=== PATIENT | male | born 1950 | race Caucasian/White ===

== ENCOUNTER 2016-02-11 09:41 | Inpatient (IN) | payer MEDICARE, MEDICAID ==
[~2016-02-11] VITALS: Ht 160 cm; Wt 56.7 kg
--- NOTE | ~2016-02-11 | PNE ---
"ADMIT DATE: 02/11/16 ROOM#: [id number] | MR#: [id number] | | [facility] | [place] [address] [address] | [facility] [id number] | | PHYSICAL THERAPY SEX: M AGE: 66 : 50 | PROGRESS NOTE EXTENSION Rehab Plan of Care Update Dr. Lemus, This letter is regarding your patient Clifton Muñoz at [facility], with a previous goal date of 05/05/16. The patient has progressed, but would benefit from further safety with gait, transfers, and ADL training to allow for increased safety. We plan to extend this patient until 05/19/16 for 1-2x/day treatment sessions. PT 5x/week OT 5x/week Please let me know if you have any questions or concerns with these goals or patient's plan of care. Thank you, Ivett Waggoner, PT Say King, OTR/L Therapist Signature: Date: Therapist Signature: Date: Physician Signature: Date: "
--- NOTE | ~2016-02-11 | PNE ---
"ADMIT DATE: 02/11/16 ROOM#: [id number] | MR#: [id number] | | [facility] | [place] [address] [address] | [facility] [id number] | | PHYSICAL THERAPY SEX: M AGE: 66 : 50 | PROGRESS NOTE EXTENSION Rehab Plan of Care Update Dr. Lemus, This letter is regarding your patient Clifton Muñoz at [facility], with an original goal date of 03/24/15. The patient has progressed, but would benefit from further safety with gait, transfers, and ADL training to allow for increased safety. We plan to extend this patient until 05/05/15 for treatment sessions. PT 1-2x/days 5-6x/week OT 5x/week ST 2-3x/week Please let me know if you have any questions or concerns with these goals or patient's plan of care. Thank you, Nicol Sandoval, PT, DPT Say King, OTR/L Sandi Reilly MS, CCC-SOLAR ENERGY ENGINEER Therapist Signature: Date: Therapist Signature: Date: Therapist Signature: Date: Physician Signature: Date: "
--- NOTE | 2016-02-15 20:53 | NUR ---
PT C/O PAIN LEFT GREAT TOE AND INNER ASPECT OF 2ND DIGIT L FOOT. PER EXAM SL RED WHERE THICK GREAT TOENAIL IS TOUCHING THE 2ND TOE, SKIN INTACT. STATES IT WAS MORE PAINFUL AFTER PT TODAY PER SURVEY METHODOLOGIST. DENIES STUBBING THE TOE OR OTHER INJURY WILL CONT TO MONITOR. APPLIED MEPILEX VORDER ON INNER ASPECT OF THE TOES TO PREVENT PRESSURE.
--- NOTE | 2016-02-17 09:52 | NUR ---
INTERVIEW FOR MDS 3.0-PT. IS ALERT, ORIENTED AND COGNITON IS INTACT. PER REHAB NOTES AND SNU DAILY ASSESSMENT, PT. IS APPROPRIATE WITH ANSWERS AND VERY MOTIVATED. PRIOR TO HOSPITALIZATION PT. WAS INDEPENDENT WITH ALL HIS ADLS AND MOBILITY NEEDS. HE LIVES IN A BASEMENT APPARTMENT WHICH REQUIRED 3 FLIGHTS OF STAIRS. PT. IS NOT DEPRESSED AND THRU INTERPETER AT DIFFERENT REHAB INTERVIEW, HE HAS A LITTLE TROUBLE SLEEPING AT TIMES BUT HIS APPETITE IS GOOD. LIKES SHOWERING, DOES NOT SEEM TO CARE ABOUT HAVING STAFF CHOOSE HIS CLOTHES FOR THE DAY. HAS SUPPLEMENT SNACKS OF [employer] OR ENSURE IN THE AM AND AFTERNOON AND A MAGIC CUP AT . HE'S VERY MOTIVATED TO BE ABLE TO GET HOME WITH HIS FAMILY AND WOULD ALSO LIKE TO RETURN TO [place] WHERE HE HAS A PLACE TO LIVE THAT HAS NO STAIRS. DENIES ANY PAIN. ALL INFORMATION TAKEN FROM ADMISSION ASSESSMENT, SNU DAILY ASSESSMENT, REHAB NOTES AND VISUAL EVALUATION AT DIFFERENT TIMES OF THE DAY SINCE ADMISSION.
--- NOTE | 2016-02-22 19:58 | NUR ---
pt seems happy -says relax / sleep,no noise
--- NOTE | 2016-03-14 18:43 | NUR ---
1740 WENT INTO PT ROOM TO GET PT INTO W/C. ATTEMPTED TO PUT GAIT BELT ON PT AND PT REFUSED TO PUT IT ON. REMINDED PT THAT THE GAIT BELT NEEDS TO BE USED WITH ALL TRANSFERS AND THAT IT IF FOR HIS SAFETY. PT GETS ANGRY CALLS NURSE Eugenia MUNIZ. VOICES THAT HE WILL JUST NOT EAT. TOLD HIM THAT IS HIS CHOICE BUT HE NEEDS TO ALWAYS USE A GAIT BELT TO TRANSFER. HE VOICES IT ONLY NEEDS TO USE FOR THERAPY. AGAIN INFORMED HIM THAT IT NEEDS TO BE USED FOR TRANSFERS ALSO. GETS ANGRIER AND PULLS AT HIS CLOTHING WHILE TALKING IN [place] AND AGAIN CALLS NURSE Eugenia MUNIZ IN [place]. FINALLY ALLOWS GAIT BELT TO BE APPLIED. PUSHED HIM TO DINING ROOM. HE LIFTS UP THE TRAY TABLE AND HIS WEAK ARM FALLS TO THE SIDE. REMINDED HIM TO LIFT ARM UP AND REST ON LAP. VOICES "I CAN'T" ENCOURAGED HIM TO TRY. HE DOES SO AND AGAIN CALLS NURSE Eugenia SALINASCH
--- NOTE | 2016-05-17 14:39 | NUR ---
PATIENT NOTE CLIFTON HAS BEEN D/C TO HOME FOLLOWING AN 81 DAY STAY HERE AT [facility] SKILLED CARE FOR CONTINUED THERAPY FOLLOWING HIS STROKE THAT OCCURED 01/06. CLIFTON RETURNED TO HIS SISTERS HOME HERE IN [place], HIS NEPHEW TEMPLE WILL BE THE PRIMARY CAREGIVER. A WALKER WAS ORDERED AND DELIVERED TO THIS UNIT, FAMILY WENT AND PURCHASED A OLGA WALKER, SHOWER CHAIR AND STOOL RISER. [facility] WILL PROVIDE RN/PT/OT/ST/BA SERVICES. HHC OPTIONS GIVEN TO FAMILY AND [facility] WAS CHOSEN. REFERRAL WAS MADE TO [facility] ON [address] AND MARIN WILL BE HIS BODY PRESS OPERATOR, SHE HAS BEEN NOTIFIED OF HIS D/C. ALL MEDS CALLED INTO [address] I WISHED HIM WELL AT HOME AND FAMILY WILL CALL WITH QUESTIONS OR CONCERNS.
[2016-05-18] MEDS ORDERED: ASA325 MG PO (10:11)
[2016-05-18] MEDS ORDERED: ZESTRIL DPS2.5 MG PO (10:11)
[2016-05-18] MEDS ORDERED: LIPITOR DPS20 MG PO (10:11)
[2016-05-18] MEDS ORDERED: SURFAK DPS240 MG PO (10:12)
[2016-05-18] MEDS ORDERED: VITAMIN B-12500 MCG PO (10:12)
[2016-05-18] MEDS ORDERED: VITAMIN D1000 UNIT PO (10:12)
[2016-05-18] MEDS ORDERED: MULTIVITAMINS1 EAC1 PO (10:12)
[2016-05-18] MEDS ORDERED: PLAVIX75 MG PO (10:12)
[2016-05-18] MEDS ORDERED: PEPCID DPS20 MG PO (10:13)
== END 2016-05-17 11:45 | disposition home health service (06) | DRG 57 ==
LOC: SNU 09:41
PROVIDERS: ADMIT Family Medicine
PROC: F07M3ZZ Motor Function Treatment of Musculoskeletal System - Whole Body (ICD-10-PCS; principal; 2016-02-18)
PROC: F08Z4ZZ Home Management Treatment (ICD-10-PCS; principal; 2016-02-18)
PROC: F06ZDZZ Swallowing Dysfunction Treatment (ICD-10-PCS; principal; 2016-02-18)
PROC: 0HBRXZZ Excision of Toe Nail, External Approach (ICD-10-PCS; 2016-03-14)
DX: I69.351 Hemiplegia and hemiparesis following cerebral infarction affecting right dominant side (principal); I50.32 Chronic diastolic (congestive) heart failure; I69.322 Dysarthria following cerebral infarction; Z11.1 Encounter for screening for respiratory tuberculosis; Z23 Encounter for immunization; I10 Essential (primary) hypertension; E78.5 Hyperlipidemia, unspecified; I73.9 Peripheral vascular disease, unspecified; K21.9 Gastro-esophageal reflux disease without esophagitis; I69.391 Dysphagia following cerebral infarction; R13.10 Dysphagia, unspecified; E55.9 Vitamin D deficiency, unspecified; L60.0 Ingrowing nail